=== PATIENT | female | born 1995 | race Caucasian/White ===

== ENCOUNTER 2019-07-19 18:42 | Emergency (ER) | payer OTHER ==
[~2019-07-19] VITALS: Ht 177.8 cm; Wt 63.6 kg
[2019-07-19] MEDS ORDERED: JUNEL 1.5 MG-31 EACH PO (18:48)
[2019-07-19 18:49] VITALS: BP 131/76; TEMP 98.4
[2019-07-19] MEDS ORDERED: NORCO 325 MG-51 TAB PO (20:09)
[2019-07-19 20:54] VITALS: PULSE 87
== END 2019-07-19 20:54 | disposition home or self-care (01) ==
LOC: COL.ER 18:42
DX: S42.215A Unspecified nondisplaced fracture of surgical neck of left humerus, initial encounter for closed fracture (principal); W31.89XA Contact with other specified machinery, initial encounter; Y93.A1 Activity, exercise machines primarily for cardiorespiratory conditioning; Y92.39 Other specified sports and athletic area as the place of occurrence of the external cause